=== PATIENT | female | born 1930 | race Caucasian/White ===

== ENCOUNTER 2018-11-13 12:55 | Emergency (ER) | payer BC, MEDICARE ==
[2018-11-13 13:46] VITALS: BP 165/66
[2018-11-13] MEDS ORDERED: Diphtheria,Pertussis(Acell),Tetanus Vaccine 0.5 ML SDV IM ONE (13:57)
--- NOTE | 2018-11-13 14:00 | EDM.PDOC ---
ED HPI GENERAL MEDICAL PROBLEM - General Chief Complaint: Laceration Stated Complaint: SCRAP ON LEFT LEG Time Seen by Provider: 11/13/18 13:40 Source of Information: Reports: Patient, Family History Limitations: Reports: No Limitations - History of Present Illness INITIAL COMMENTS - FREE TEXT/NARRATIVE: 87 yo female presents to ER with skin tear to her left leg. When she was getting out of car she bumped leg on the car causing the tear. 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: Reports: 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 ROLL TUBE SETTER History: complete hysterectomy for calcified endometriosis Neurological History: Reports: Other (See Below) Other Neuro History: headache currently interupting sleep - does not really have headaches otherwise - left frontal/top of head - no vision changes - Infectious Disease History Infectious Disease History: Reports: Chicken Pox, Shingles - Past Surgical History Female Surgical History: Reports: Hysterectomy, Salpingo-Oophorectomy Social & Family History - Family History Oncologic: Reports: Brain - Tobacco Use Smoking Status *Q: Never Smoker ED ROS GENERAL - Review of Systems Review Of Systems: See Below Constitutional: Denies: Fever, Chills Respiratory: Denies: Shortness of Breath Cardiovascular: Denies: Chest Pain ED EXAM, SKIN/RASH Exam: See Below Text/Narrative:: exam limited to left leg Exam Limited By: No Limitations General Appearance: Alert, WD/WN, No Apparent Distress Skin: Other (8cm x 6 cm skin tear with intact skin left mid lateral lower leg) ED SKIN PROCEDURES - Additional/Other Procedure(s) Other (Free Text) Procedure(s): wound cleansed with normal saline, skin reapproximated and tegaderm dressing applied. bandaged with kerlex Course - Vital Signs Last Recorded V/S: Last Vital Signs Temp 35.9 C 11/13/18 13:43 Pulse 81 11/13/18 13:43 Resp 14 11/13/18 13:43 BP 165/66 H 11/13/18 13:43 Pulse Ox 98 11/13/18 13:43 - Orders/Labs/Meds Orders: Active Orders 24 hr Category Date Time Status Vaccines to be Administered [RC] PER UNIT ROUTINE Care 11/13/18 13:57 Active Meds: Medications Discontinued Medications Generic Name Dose Route Start Last Admin Trade Name Matt PRN Reason Stop Dose Admin Diphtheria/Tetanus/Acell Pertussis 0.5 ml 11/13/18 13:57 Adacel IM 11/13/18 13:58 .ONCE ONE Departure - Departure Time of Disposition: 13:58 Disposition: Home, Self-Care 01 Condition: Good Clinical Impression: Skin tear of lower leg without complication Qualifiers: Encounter type: initial encounter Laterality: left Qualified Code(s): S81.812A - Laceration without foreign body, left lower leg, initial encounter - Discharge Information *PRESCRIPTION DRUG MONITORING PROGRAM REVIEWED*: Not Applicable *COPY OF PRESCRIPTION DRUG MONITORING REPORT IN PATIENT KAI: Not Applicable Instructions: Skin Tear Care Referrals: PCP,None [Primary Care Provider] - Forms: ED Department Discharge Additional Instructions: leave dressing in place no soaking of leg until healed observe for signs of infection - fire engine red, purulent drainage, increase in swelling or increase in pain ice today for pain relief - My Orders Last 24 Hours: My Active Orders 11/13/18 13:57 Vaccines to be Administered [RC] PER UNIT ROUTINE - Assessment/Plan Last 24 Hours: My Active Orders 11/13/18 13:57 Vaccines to be Administered [RC] PER UNIT ROUTINE
== END 2018-11-13 14:22 | disposition home or self-care (01) ==
LOC: JP.ED 12:55
DX: S81.812A Laceration without foreign body, left lower leg, initial encounter (principal); I25.2 Old myocardial infarction; Z79.899 Other long term (current) drug therapy; Z23 Encounter for immunization; W22.8XXA Striking against or struck by other objects, initial encounter
CPT/HCPCS: 90471; 90715; 99282

== ENCOUNTER 2019-12-17 22:32 | Inpatient (IN) | payer MEDICARE ==
--- NOTE | 2019-12-17 23:27 | EDM.PDOC ---
ED HPI GENERAL MEDICAL PROBLEM - General Chief Complaint: Lower Extremity Injury/Pain Stated Complaint: FALL VIA NORTH Time Seen by Provider: 12/17/19 23:13 Source of Information: Reports: Patient, RN Notes Reviewed History Limitations: Reports: No Limitations - History of Present Illness INITIAL COMMENTS - FREE TEXT/NARRATIVE: 89-year-old female presents emergency department today following a fall at home she states she fell on her right hip she did experience 10 out of 10 pain however EMS did provide some pain medication for her which has helped she cannot bear weight she denies hitting her head there is no loss of consciousness Right Hip Pain Score (Numeric/FACES): 1 - Related Data Allergies Allergy/AdvReac Type Severity Reaction Status Date / Time No Known Allergies Allergy Verified 12/17/19 22:39 Home Meds: Home Meds Ibuprofen 200 mg PO BID 11/21/15 [History] Niacin 1,000 mg PO BID 11/21/15 [History] Simvastatin 1 tab PO DAILY 12/16/15 [History] diphenhydrAMINE HCL [Wal-Sleep Z] 2 tab PO BEDTIME 12/17/19 [History] Past Medical History HEENT History: Reports: Cataract Cardiovascular History: Reports: CAD, NE Other Cardiovascular History: NE in approx 2001 Genitourinary History: Reports: Other (See Below) Other Genitourinary History: hx of uti infections 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: 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 ENGINEER History: complete hysterectomy for calcified endometriosis Neurological History: Reports: Other (See Below) Other Neuro History: headache currently interupting sleep - does not really have headaches otherwise - left frontal/top of head - no vision changes - Infectious Disease History Infectious Disease History: Reports: Chicken Pox, Shingles - Past Surgical History Female Surgical History: Reports: Hysterectomy, Salpingo-Oophorectomy Social & Family History - Family History Oncologic: Reports: Brain - Tobacco Use Smoking Status *Q: Never Smoker - Caffeine Use Caffeine Use: Reports: Coffee - Recreational Drug Use Recreational Drug Use: No Review of Systems - Review of Systems Review Of Systems: See Below Constitutional: Reports: No Symptoms Musculoskeletal: Reports: Joint Pain Skin: Reports: No Symptoms Neurological: Reports: No Symptoms (Right hip pain) ED EXAM, GENERAL - Physical Exam Exam: See Below Free Text/Narrative:: Examination the right hip I do not appreciate any abrasion there is no erythema there is no edema noted over the right hip I can do flexion extension as well as internal and external rotation however this does elicit pain Exam Limited By: No Limitations General Appearance: Alert, WD/WN, No Apparent Distress Respiratory/Chest: No Respiratory Distress, Lungs Clear, Normal Breath Sounds, No Accessory Muscle Use, Chest Non-Tender Cardiovascular: Regular Rate, Rhythm, No Murmur Course - Vital Signs Last Recorded V/S: Last Vital Signs Temp 98.1 F 12/17/19 22:45 Pulse 75 12/17/19 22:45 Resp 16 12/17/19 22:45 BP 116/63 12/17/19 22:45 Pulse Ox 98 12/17/19 22:45 - Orders/Labs/Meds Orders: Active Orders 24 hr Category Date Time Status Hip Min 2V or 3V w Pelvis Rt [CR] Stat Exams 12/17/19 23:24 Taken Departure - Departure Time of Disposition: 00:08 Disposition: Home, Self-Care 01 Condition: Fair Clinical Impression: Fracture of neck of femur, hip - Discharge Information Referrals: PCP,None [Primary Care Provider] - Forms: ED Department Discharge Sepsis Event Note (ED) - Evaluation Sepsis Screening Result: No Definite Risk - Focused Exam Vital Signs: Vital Signs Temp Pulse Resp BP Pulse Ox 12/17/19 22:45 98.1 F 75 16 116/63 98 - My Orders Last 24 Hours: My Active Orders 12/17/19 23:24 Hip Min 2V or 3V w Pelvis Rt [CR] Stat - Assessment/Plan Last 24 Hours: My Active Orders 12/17/19 23:24 Hip Min 2V or 3V w Pelvis Rt [CR] Stat Plan: Assessment Acuity = acute Site and laterality = right neck fracture femoral Etiology = secondary to fall Manifestations = none Location of injury = Home Lab values = x-ray describes a fracture above Plan Call discussed case with Dr. Boateng orthopedic surgery at [phone] agreed to do consultation in the morning for possible surgical intervention, call discussed case on-call physician at [phone] agreed to evaluate the patient in the hospital for admission This note was dictated using [employer] voice recognition software please call with any questions on syntax or grammar.
[2019-12-18] MEDS ORDERED: Ondansetron 4 MG/2 ML SDV IV PRN (00:09)
[2019-12-18] MEDS ORDERED: fentaNYL 100 MCG/2 ML SDV IVPUSH PRN (00:12)
[2019-12-18] MEDS: Sodium Chloride 0.9% 1,000 ML IV SCH ×2 (00:44→08:12)
[2019-12-18] MEDS: fentaNYL 100 MCG/2 ML SDV IVPUSH PRN ×4 (04:00→19:16)
[2019-12-18] MEDS: Niacin 500 MG Cap.ER PO SCH ×2 (08:01→21:24)
[2019-12-18] MEDS ORDERED: Midazolam 1 MG/ML 2 ML SDV ONE (09:21)
[2019-12-18] MEDS ORDERED: fentaNYL 100 MCG/2 ML SDV ONE ×3 (09:21→13:02)
[2019-12-18] MEDS ORDERED: Propofol 200 MG/20 ML SDV ONE (09:21)
[2019-12-18] MEDS: Simvastatin 20 MG Tab PO SCH (09:53)
--- NOTE | 2019-12-18 10:28 | HP ---
CHIEF COMPLAINT: Right hip pain. HISTORY OF PRESENT ILLNESS: An 89-year-old who tripped on step stool, landed on her right hip, had 10/10 pain. Ambulance was called. They did give her some pain medicine in transport and presented to the emergency room with right hip pain, was found to have right hip fracture. Dr. Elizondor, the emergency room physician did contact Orthopedic Surgery who will take a look at her in the morning for possible repair, and I was asked to admit the patient for further evaluation and treatment. She denies any other complaints at this time. PAST MEDICAL HISTORY: 1. Coronary artery disease with a slight heart attack in 2001, had 1 stent placed and has been asymptomatic since then. 2. Hyperlipidemia, which she takes medication for. 3. Hysterectomy with bilateral salpingo-oophorectomy for endometriosis. 4. Rotator cuff tears with repair to her right shoulder. 5. Osteoarthritis, right knee. CURRENT MEDICATION: Simvastatin 20 mg daily. SOCIAL HISTORY: Nonsmoker. Does drink 1 drink of alcohol per day, I believe vodka. FAMILY HISTORY: Mother of brain cancer at age 59. Father had some type of intestinal cancer in his 80s. REVIEW OF SYSTEMS: She does report headache, but that is better. Otherwise, no other HEENT complaints. Denies any chest pain or trouble breathing. No nausea, vomiting, diarrhea, or constipation. No urinary problems reported. No swelling in her legs. No skin problems. No neurologic complaints. Orthopedic complaints as above with the right hip pain and unable to bear weight on her right leg. She also complains of right knee pain which is chronic. OBJECTIVE: VITAL SIGNS: Weight set scale 62.2, temperature 36.7 pulse 75, blood pressure 116/63, respirations 16, O2 saturation 98% on room air. GENERAL: The patient is alert and oriented x3. No apparent distress. HEENT: Pharynx is clear. NECK: Supple. No adenopathy, thyromegaly, JVD, carotid bruits. LUNGS: Clear. HEART: Regular without murmurs. ABDOMEN: Soft, nontender. No mass or organomegaly palpated. EXTREMITIES: The patient does have pain with palpation and movement to her right hip. She has no swelling in her lower extremities. SKIN: Unremarkable. NEUROLOGIC: Cranial nerves 2 through 12 grossly intact. Alert and oriented x3. Mental status is normal. LABORATORY DATA: COVID-19 testing was negative. X-ray did show right hip fracture. ASSESSMENT: 1. Right hip fracture. We will admit her to the hospital with Orthopedic Surgery going to look at her later today for definitive treatment plan. If she does have to have surgery, she is cleared for surgery. 2. Coronary artery disease with slight myocardial infarction in 2001 with 1 stent placed, been asymptomatic since then. 3. Hyperlipidemia. 4. Hysterectomy with bilateral salpingo-oophorectomy. 5. Daily alcohol use with 1 vodka per day. Dusty Sequeira MD /[id number]
[2019-12-18] MEDS ORDERED: Bupivacaine 0.5%/EPINEPHrine 1:200,000 50 ML MDV ONE (10:32)
[2019-12-18] MEDS ORDERED: oxyCODONE 5 MG Tab PO PRN (10:49)
[2019-12-18] MEDS ORDERED: Acetaminophen 325 MG Tab PO PRN (10:49)
[2019-12-18] MEDS ORDERED: Ondansetron 4 MG Tab.DIS PO PRN (10:50)
--- NOTE | 2019-12-18 10:52 | PCM.PN ---
- General Info Date of Service: 12/18/19 Subjective Update: No acute events overnight. Pain has been well controlled. No significant nausea. No abdominal pain. Surgery is planned later this afternoon. Functional Status: Reports: Pain Controlled - Patient Data Vitals - Most Recent: Last Vital Signs Temp 36.5 C 12/18/19 08:06 Pulse 66 12/18/19 08:06 Resp 18 12/18/19 08:06 BP 134/64 12/18/19 08:06 Pulse Ox 95 12/18/19 08:06 Weight - Most Recent: 62.284 kg I&O - Last 24 Hours: Intake & Output 12/17/19 12/18/19 12/18/19 22:59 06:59 14:59 Intake Total 416 Output Total 550 Balance -134 Lab Results Last 24 Hours: Laboratory Results - last 24 hr 12/18/19 Range/Units 04:17 SARS Virus RNA (PCR) Negative (NEGATIVE) Med Orders - Current: Current Medications Diphenhydramine HCl (Benadryl) 50 mg PO BEDTIME [facility] Fentanyl (Sublimaze) 50 mcg IVPUSH Q2H PRN PRN Reason: Pain (severe 7-10) Last Admin: 12/18/19 07:54 Dose: 50 mcg Documented by: Niacin (Niacin) 1,000 mg PO BID [facility] Last Admin: 12/18/19 08:01 Dose: Not Given Documented by: Ondansetron HCl (Zofran) 4 mg IV Q4H PRN PRN Reason: Nausea/Vomiting Simvastatin (Zocor) 20 mg PO DAILY [facility] Last Admin: 12/18/19 09:53 Dose: Not Given Documented by: Discontinued Medications Bupivacaine HCl/Epinephrine Bitart (Marcaine 0.5%/Epinephrine 1:200,000) Confirm Administered Dose 50 ml .ROUTE .STK-MED ONE Stop: 12/18/19 10:33 Fentanyl (Sublimaze) 50 mcg IVPUSH Q6H PRN PRN Reason: Pain (severe 7-10) Last Admin: 12/18/19 01:04 Dose: 50 mcg Documented by: Fentanyl (Sublimaze) Confirm Administered Dose 100 mcg .ROUTE .STK-MED ONE Stop: 12/18/19 09:22 Sodium Chloride (Normal Saline) 1,000 mls @ 125 mls/hr IV ASDIRECTED [facility] Last Admin: 12/18/19 08:12 Dose: 125 mls/hr Documented by: Midazolam HCl (Versed 1 Mg/Ml) Confirm Administered Dose 2 mg .ROUTE .STK-MED ONE Stop: 12/18/19 09:22 Propofol (Diprivan 20 Ml) Confirm Administered Dose 200 mg .ROUTE .STK-MED ONE Stop: 12/18/19 09:22 - Exam Quality Assessment: No: Supplemental Oxygen General: Alert, Oriented, Cooperative, No Acute Distress Lungs: Normal Respiratory Effort GI/Abdominal Exam: Soft, No Distention Extremities: No Pedal Edema Psy/Mental Status: Alert, Normal Affect Sepsis Event Note - Evaluation Sepsis Screening Result: No Definite Risk - Focused Exam Vital Signs: Vital Signs Temp Pulse Resp BP Pulse Ox 12/18/19 08:06 36.5 C 66 18 134/64 95 12/18/19 04:04 36.8 C 84 16 145/62 H 95 12/18/19 00:09 35.8 C L 76 16 132/64 96 Date Exam was Performed: 12/18/19 Time Exam was Performed: 12:23 - Problem List Review Problem List Initiated/Reviewed/Updated: Yes - My Orders Last 24 Hours: My Active Orders 12/18/19 10:48 BASIC METABOLIC PANEL,BMP [CHEM] Urgent 12/18/19 10:49 CBC WITH AUTO DIFF [HEME] Urgent Acetaminophen [Tylenol] 650 mg PO Q4H PRN oxyCODONE 5 mg PO Q4H PRN 12/18/19 10:50 Ondansetron [Zofran ODT] 4 mg PO Q4H PRN 12/18/19 11:00 Sodium Chloride 0.9% [Normal Saline] 1,000 ml IV ASDIRECTED 12/18/19 21:00 Melatonin 9 mg PO BEDTIME 12/19/19 00:30 Angulo Catheter Insertion [Insert Urinary Catheter] [OM.PC] Q24H 12/19/19 05:00 BASIC METABOLIC PANEL,BMP [CHEM] Timed CBC W/O DIFF,HEMOGRAM [HEME] Timed (1) - Plan Plan:: ASSESSMENT AND PLAN - Traumatic fracture of the right hip-patient medically optimized. Surgery planned later in the day. No significant past medical history. -Pain control -Surgical intervention later in the day with Dr Luigi Boateng -Physical therapy when stable after surgery Maintenance issues - - DVT prophylaxis -mechanical today, initiate enoxaparin when able after surgery - GI prophylaxis -not indicated - Nutrition -n.p.o. until after surgery - Angulo catheter -placed in the emergency room with major lower extremity fracture and need for accurate intake and output Disposition -home with home care versus subacute rehab Mark Goldne M.D.
[2019-12-18] MEDS ORDERED: Sodium Chloride 0.9% 1,000 ML IV SCH (11:00)
--- NOTE | 2019-12-18 11:39 | CR ---
Hip Min 2V or 3V w Pelvis Rt CLINICAL HISTORY: Fall, pain FINDINGS: There is a cortical step-off laterally at the subcapital region of the femur. There is some transverse lucency in this region on the frog-leg lateral. There are severe degenerative changes in the lumbar spine. IMPRESSION: Apparent subcapital fracture right femur
[2019-12-18] MEDS ORDERED: Sodium Chloride 0.9% 10 ML ONE ×2 (11:51→12:32)
[2019-12-18] MEDS ORDERED: ceFAZolin 1 GM Vial ONE (11:51)
[2019-12-18] MEDS ORDERED: ePHEDrine 50 MG/ML SDV ONE (12:32)
[2019-12-18] MEDS: oxyCODONE 5 MG Tab PO PRN (18:32)
[2019-12-18] MEDS ORDERED: Ketorolac 30 MG/ML SDV IVPUSH SCH (20:45)
[2019-12-18] MEDS ORDERED: Ketorolac 30 MG/ML SDV IVPUSH ONE (20:54)
[2019-12-18] MEDS: Melatonin 3 MG Tab PO SCH (21:24)
[2019-12-18] MEDS: diphenhydrAMINE 25 MG Cap PO SCH (21:24)
[2019-12-19] MEDS: oxyCODONE 5 MG Tab PO PRN ×2 (03:12→10:32)
[2019-12-19] MEDS: Ketorolac 30 MG/ML SDV IVPUSH SCH ×3 (05:16→20:17)
[2019-12-19] MEDS: Niacin 500 MG Cap.ER PO SCH ×2 (08:43→20:17)
[2019-12-19] MEDS: Simvastatin 20 MG Tab PO SCH (08:44)
--- NOTE | 2019-12-19 10:50 | PCM.PN ---
- General Info Date of Service: 12/19/19 Subjective Update: No acute events overnight. Uneventful surgery yesterday afternoon with a hip pinning completed. Pain is well controlled. No fevers. Vital signs have been stable. Tolerating diet. Has not worked with physical therapy yet but they will be in shortly. Functional Status: Reports: Pain Controlled - Patient Data Vitals - Most Recent: Last Vital Signs Temp 36.8 C 12/19/19 07:18 Pulse 75 12/19/19 07:18 Resp 19 12/19/19 07:18 BP 118/77 12/19/19 07:18 Pulse Ox 98 12/19/19 07:18 Weight - Most Recent: 62.284 kg I&O - Last 24 Hours: Intake & Output 12/18/19 12/19/19 12/19/19 22:59 06:59 14:59 Intake Total 1751 1199 120 Output Total 475 600 50 Balance 1276 599 70 Lab Results Last 24 Hours: Laboratory Results - last 24 hr 12/18/19 12/18/19 12/19/19 Range/Units 10:52 10:52 04:15 WBC 5.3 5.8 (4.5-11.0) K/uL RBC 3.60 3.50 (3.30-5.50) M/uL Hgb 11.8 L 11.2 L (12.0-15.0) g/dL Hct 36.1 35.1 L (36.0-48.0) % MCV 100 H 100 H (80-98) fL MCH 33 H 32 H (27-31) pg MCHC 33 32 (32-36) % Plt Count 159 141 L (150-400) K/uL Neut % (Auto) 70 H (36-66) % Lymph % (Auto) 19 L (24-44) % Coffey % (Auto) 8 H (2-6) % Eos % (Auto) 2 (2-4) % Baso % (Auto) 0 (0-1) % Sodium 143 (140-148) mmol/L Potassium 3.9 (3.6-5.2) mmol/L Chloride 107 (100-108) mmol/L Carbon Dioxide 27 (21-32) mmol/L Anion Gap 9.2 (5.0-14.0) mmol/L BUN 17 (7-18) mg/dL Creatinine 0.8 (0.6-1.0) mg/dL Est Cr Clr Drug Dosing 42.83 mL/min Estimated GFR (MDRD) > 60 (>60) Glucose 102 (74-106) mg/dL Calcium 8.7 (8.5-10.1) mg/dL 12/19/19 Range/Units 04:15 WBC (4.5-11.0) K/uL RBC (3.30-5.50) M/uL Hgb (12.0-15.0) g/dL Hct (36.0-48.0) % MCV (80-98) fL MCH (27-31) pg MCHC (32-36) % Plt Count (150-400) K/uL Neut % (Auto) (36-66) % Lymph % (Auto) (24-44) % Coffey % (Auto) (2-6) % Eos % (Auto) (2-4) % Baso % (Auto) (0-1) % Sodium 139 L (140-148) mmol/L Potassium 3.9 (3.6-5.2) mmol/L Chloride 104 (100-108) mmol/L Carbon Dioxide 26 (21-32) mmol/L Anion Gap 12.9 (5.0-14.0) mmol/L BUN 13 (7-18) mg/dL Creatinine 1.0 (0.6-1.0) mg/dL Est Cr Clr Drug Dosing 34.26 mL/min Estimated GFR (MDRD) 52 L (>60) Glucose 114 H (74-106) mg/dL Calcium 8.4 L (8.5-10.1) mg/dL Med Orders - Current: Current Medications Acetaminophen (Tylenol) 650 mg PO Q4H PRN PRN Reason: Pain/Fever Last Admin: 12/19/19 03:13 Dose: 650 mg Documented by: Diphenhydramine HCl (Benadryl) 50 mg PO BEDTIME [facility] Last Admin: 12/18/19 21:24 Dose: Not Given Documented by: Fentanyl (Sublimaze) 50 mcg IVPUSH Q2H PRN PRN Reason: Pain (severe 7-10) Last Admin: 12/18/19 19:16 Dose: 50 mcg Documented by: Sodium Chloride (Normal Saline) 1,000 mls @ 75 mls/hr IV ASDIRECTED [facility] Last Admin: 12/19/19 05:15 Dose: 75 mls/hr Documented by: Ketorolac Tromethamine (Toradol) 15 mg IVPUSH Q8H [facility] Stop: 12/20/19 13:01 Last Admin: 12/19/19 05:16 Dose: 15 mg Documented by: Melatonin (Melatonin) 9 mg PO BEDTIME [facility] Last Admin: 12/18/19 21:24 Dose: Not Given Documented by: Niacin (Niacin) 1,000 mg PO BID [facility] Last Admin: 12/19/19 08:43 Dose: 1,000 mg Documented by: Ondansetron HCl (Zofran) 4 mg IV Q4H PRN PRN Reason: Nausea/Vomiting Ondansetron HCl (Zofran Odt) 4 mg PO Q4H PRN PRN Reason: Nausea/Vomiting Oxycodone HCl (Oxycodone) 5 - 10 mg PO Q4H PRN PRN Reason: Pain (moderate 4-6) Last Admin: 12/19/19 10:32 Dose: 10 mg Documented by: Simvastatin (Zocor) 20 mg PO DAILY [facility] Last Admin: 12/19/19 08:44 Dose: 20 mg Documented by: Discontinued Medications Bupivacaine HCl/Epinephrine Bitart (Marcaine 0.5%/Epinephrine 1:200,000) Confirm Administered Dose 50 ml .ROUTE .STK-MED ONE Stop: 12/18/19 10:33 Cefazolin Sodium (Ancef) Confirm Administered Dose 1 gm .ROUTE .STK-MED ONE Stop: 12/18/19 11:52 Ephedrine Sulfate (Ephedrine Sulfate) Confirm Administered Dose 50 mg .ROUTE .STK-MED ONE Stop: 12/18/19 12:33 Fentanyl (Sublimaze) 50 mcg IVPUSH Q6H PRN PRN Reason: Pain (severe 7-10) Last Admin: 12/18/19 01:04 Dose: 50 mcg Documented by: Fentanyl (Sublimaze) Confirm Administered Dose 100 mcg .ROUTE .STK-MED ONE Stop: 12/18/19 09:22 Fentanyl (Sublimaze) Confirm Administered Dose 100 mcg .ROUTE .STK-MED ONE Stop: 12/18/19 13:01 Fentanyl (Sublimaze) Confirm Administered Dose 100 mcg .ROUTE .STK-MED ONE Stop: 12/18/19 13:03 Sodium Chloride (Normal Saline) 1,000 mls @ 125 mls/hr IV ASDIRECTED [facility] Last Admin: 12/18/19 08:12 Dose: 125 mls/hr Documented by: Sodium Chloride (Normal Saline) Confirm Administered Dose 10 mls @ as directed .ROUTE .STK-MED ONE Stop: 12/18/19 11:52 Sodium Chloride (Normal Saline) Confirm Administered Dose 10 mls @ as directed .ROUTE .STK-MED ONE Stop: 12/18/19 12:33 Ketorolac Tromethamine (Toradol) 30 mg IVPUSH Q8H [facility] Stop: 12/20/19 12:46 Last Admin: 12/18/19 22:12 Dose: Not Given Documented by: Ketorolac Tromethamine (Toradol) 30 mg IVPUSH ONETIME ONE Stop: 12/18/19 20:55 Last Admin: 12/18/19 21:19 Dose: 30 mg Documented by: Midazolam HCl (Versed 1 Mg/Ml) Confirm Administered Dose 2 mg .ROUTE .STK-MED ONE Stop: 12/18/19 09:22 Oxycodone HCl (Oxycodone) 5 mg PO Q4H PRN PRN Reason: Pain (moderate 4-6) Propofol (Diprivan 20 Ml) Confirm Administered Dose 200 mg .ROUTE .STK-MED ONE Stop: 12/18/19 09:22 - Exam Quality Assessment: No: Supplemental Oxygen General: Alert, Oriented, Cooperative, No Acute Distress Lungs: Normal Respiratory Effort Cardiovascular: Regular Rate, Regular Rhythm GI/Abdominal Exam: Soft, No Distention Extremities: No Pedal Edema. No: Increased Warmth Skin: Warm, Dry, Ecchymosis (Around incision site on the right lateral thigh) Wound/Incisions: Dressing Dry and Intact Psy/Mental Status: Alert, Normal Affect Sepsis Event Note - Evaluation Sepsis Screening Result: No Definite Risk - Focused Exam Vital Signs: Vital Signs Temp Temp Pulse Resp BP Pulse Ox 12/19/19 07:18 36.8 C 75 19 118/77 98 12/19/19 03:43 37.2 C 12/19/19 03:13 37.3 C 12/19/19 03:07 37.3 C 76 16 137/62 98 Date Exam was Performed: 12/19/19 Time Exam was Performed: 10:47 - Problem List Review Problem List Initiated/Reviewed/Updated: Yes - My Orders Last 24 Hours: My Active Orders 12/18/19 10:49 Acetaminophen [Tylenol] 650 mg PO Q4H PRN 12/18/19 10:50 Ondansetron [Zofran ODT] 4 mg PO Q4H PRN 12/18/19 11:00 Sodium Chloride 0.9% [Normal Saline] 1,000 ml IV ASDIRECTED 12/18/19 21:00 Melatonin 9 mg PO BEDTIME 12/19/19 10:15 Convert IV to Saline Lock [OM.PC] Routine 12/19/19 10:47 Up With Assistance [RC] ASDIRECTED 12/20/19 00:30 Angulo Catheter Insertion [Insert Urinary Catheter] [OM.PC] Q24H 12/20/19 05:00 CBC W/O DIFF,HEMOGRAM [HEME] Timed (1) - Plan Plan:: ASSESSMENT AND PLAN - Traumatic fracture of the right hip-hip pinning completed yesterday without event. Patient has been stable postoperatively. Hemoglobin is stable. -Pain control -Surgical follow-up per Dr Luigi Boateng -Physical therapy Maintenance issues - - DVT prophylaxis -enoxaparin - GI prophylaxis -not indicated - Nutrition -regular - Angulo catheter -placed in the emergency room with major lower extremity fracture and need for accurate intake and output, anticipate removal later or tomorrow Disposition -home with home care versus subacute rehab Mark Golden M.D.
[2019-12-19] MEDS ORDERED: traMADol 50 MG Tab PO PRN (18:12)
[2019-12-19] MEDS: Melatonin 3 MG Tab PO SCH (20:17)
[2019-12-19] MEDS: diphenhydrAMINE 25 MG Cap PO SCH (20:17)
[2019-12-20] MEDS: Acetaminophen/HYDROcodone 325-7.5 MG Tab PO PRN (03:54)
[2019-12-20] MEDS: Ketorolac 30 MG/ML SDV IVPUSH SCH ×2 (04:06→13:09)
[2019-12-20] MEDS ORDERED: Nitroglycerin 0.4 MG Tab.SL SL ONE (05:05)
[2019-12-20] MEDS ORDERED: Nitroglycerin 0.4 MG Tab.SL ONE (05:13)
[2019-12-20] MEDS: Niacin 500 MG Cap.ER PO SCH ×2 (08:52→20:16)
[2019-12-20] MEDS: Simvastatin 20 MG Tab PO SCH (08:52)
--- NOTE | 2019-12-20 09:30 | PCM.PN ---
- General Info Date of Service: 12/20/19 Subjective Update: The patient did have an episode of chest pain overnight. This occurred around 5 AM. 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 She did receive 1 dose of nitroglycerin with complete resolution. EKG was obtained at the time and was unremarkable. Her vital signs were all stable. Troponin level was negative. She feels normal now. No significant difficulty transferring from the bed to the chair. Pain has been very well controlled. Hemoglobin level stable. Has not had a bowel movement in several days. Functional Status: Reports: Pain Controlled, Tolerating Diet - Review of Systems General: Denies: Fever - Patient Data Vitals - Most Recent: Last Vital Signs Temp 35.7 C L 12/20/19 02:00 Pulse 77 12/20/19 02:00 Resp 16 12/20/19 02:00 BP 131/61 12/20/19 05:22 Pulse Ox 95 12/20/19 02:00 Weight - Most Recent: 62.284 kg I&O - Last 24 Hours: Intake & Output 12/19/19 12/20/19 12/20/19 22:59 06:59 14:59 Output Total 135 400 50 Balance -135 -400 -50 Lab Results Last 24 Hours: Laboratory Results - last 24 hr 12/20/19 12/20/19 Range/Units 05:38 05:38 WBC 6.9 (4.5-11.0) K/uL RBC 3.27 L (3.30-5.50) M/uL Hgb 10.6 L (12.0-15.0) g/dL Hct 33.1 L (36.0-48.0) % MCV 101 H (80-98) fL MCH 32 H (27-31) pg MCHC 32 (32-36) % Plt Count 147 L (150-400) K/uL Troponin I < 0.017 (0.000-0.056) ng/mL Med Orders - Current: Current Medications Acetaminophen (Tylenol) 650 mg PO Q4H PRN PRN Reason: Pain/Fever Last Admin: 12/19/19 03:13 Dose: 650 mg Documented by: Hydrocodone Bitart/Acetaminophen ([place] 325-7.5 Mg) 1 - 2 tab PO Q4H PRN PRN Reason: Pain (moderate 4-6) Last Admin: 12/20/19 03:54 Dose: 2 tab Documented by: Diphenhydramine HCl (Benadryl) 50 mg PO BEDTIME [facility] Last Admin: 12/19/19 20:17 Dose: 50 mg Documented by: Fentanyl (Sublimaze) 50 mcg IVPUSH Q2H PRN PRN Reason: Pain (severe 7-10) Last Admin: 12/18/19 19:16 Dose: 50 mcg Documented by: Ketorolac Tromethamine (Toradol) 15 mg IVPUSH Q8H [facility] Stop: 12/20/19 13:01 Last Admin: 12/20/19 04:06 Dose: 15 mg Documented by: Melatonin (Melatonin) 9 mg PO BEDTIME [facility] Last Admin: 12/19/19 20:17 Dose: 9 mg Documented by: Niacin (Niacin) 1,000 mg PO BID [facility] Last Admin: 12/20/19 08:52 Dose: 1,000 mg Documented by: Ondansetron HCl (Zofran) 4 mg IV Q4H PRN PRN Reason: Nausea/Vomiting Ondansetron HCl (Zofran Odt) 4 mg PO Q4H PRN PRN Reason: Nausea/Vomiting Last Admin: 12/19/19 11:30 Dose: 4 mg Documented by: Simvastatin (Zocor) 20 mg PO DAILY [facility] Last Admin: 12/20/19 08:52 Dose: 20 mg Documented by: Tramadol HCl (Ultram) 50 mg PO Q6H PRN PRN Reason: Pain (mild 1-3) Discontinued Medications Bupivacaine HCl/Epinephrine Bitart (Marcaine 0.5%/Epinephrine 1:200,000) Confirm Administered Dose 50 ml .ROUTE .STK-MED ONE Stop: 12/18/19 10:33 Cefazolin Sodium (Ancef) Confirm Administered Dose 1 gm .ROUTE .STK-MED ONE Stop: 12/18/19 11:52 Ephedrine Sulfate (Ephedrine Sulfate) Confirm Administered Dose 50 mg .ROUTE .STK-MED ONE Stop: 12/18/19 12:33 Fentanyl (Sublimaze) 50 mcg IVPUSH Q6H PRN PRN Reason: Pain (severe 7-10) Last Admin: 12/18/19 01:04 Dose: 50 mcg Documented by: Fentanyl (Sublimaze) Confirm Administered Dose 100 mcg .ROUTE .STK-MED ONE Stop: 12/18/19 09:22 Fentanyl (Sublimaze) Confirm Administered Dose 100 mcg .ROUTE .STK-MED ONE Stop: 12/18/19 13:01 Fentanyl (Sublimaze) Confirm Administered Dose 100 mcg .ROUTE .STK-MED ONE Stop: 12/18/19 13:03 Sodium Chloride (Normal Saline) 1,000 mls @ 125 mls/hr IV ASDIRECTED [facility] Last Admin: 12/18/19 08:12 Dose: 125 mls/hr Documented by: Sodium Chloride (Normal Saline) 1,000 mls @ 75 mls/hr IV ASDIRECTED [facility] Last Admin: 12/19/19 05:15 Dose: 75 mls/hr Documented by: Sodium Chloride (Normal Saline) Confirm Administered Dose 10 mls @ as directed .ROUTE .STK-MED ONE Stop: 12/18/19 11:52 Sodium Chloride (Normal Saline) Confirm Administered Dose 10 mls @ as directed .ROUTE .ST-MED ONE Stop: 12/18/19 12:33 Ketorolac Tromethamine (Toradol) 30 mg IVPUSH Q8H [facility] Stop: 12/20/19 12:46 Last Admin: 12/18/19 22:12 Dose: Not Given Documented by: Ketorolac Tromethamine (Toradol) 30 mg IVPUSH ONETIME ONE Stop: 12/18/19 20:55 Last Admin: 12/18/19 21:19 Dose: 30 mg Documented by: Midazolam HCl (Versed 1 Mg/Ml) Confirm Administered Dose 2 mg .ROUTE .STK-MED ONE Stop: 12/18/19 09:22 Nitroglycerin (Nitrostat) 0.4 mg SL ONETIME ONE Stop: 12/20/19 05:06 Last Admin: 12/20/19 05:14 Dose: 0.4 mg Documented by: Nitroglycerin (Nitrostat) Confirm Administered Dose 0.4 mg .ROUTE .STK-MED ONE Stop: 12/20/19 05:14 Last Admin: 12/20/19 05:33 Dose: Not Given Documented by: Oxycodone HCl (Oxycodone) 5 mg PO Q4H PRN PRN Reason: Pain (moderate 4-6) Oxycodone HCl (Oxycodone) 5 - 10 mg PO Q4H PRN PRN Reason: Pain (moderate 4-6) Last Admin: 12/19/19 10:32 Dose: 10 mg Documented by: Propofol (Diprivan 20 Ml) Confirm Administered Dose 200 mg .ROUTE .STK-MED ONE Stop: 12/18/19 09:22 - Exam Quality Assessment: No: Supplemental Oxygen General: Alert, Oriented, Cooperative, No Acute Distress Lungs: Normal Respiratory Effort GI/Abdominal Exam: Soft, No Distention Extremities: No Pedal Edema Psy/Mental Status: Alert, Normal Affect Sepsis Event Note - Evaluation Sepsis Screening Result: No Definite Risk - Focused Exam Vital Signs: Vital Signs Temp Temp Pulse Resp BP BP Pulse Ox 12/20/19 05:22 131/61 12/20/19 05:14 136/66 12/20/19 02:00 35.7 C L 77 16 116/61 95 12/19/19 22:35 36.3 C 114 H 16 128/54 L 97 Date Exam was Performed: 12/20/19 Time Exam was Performed: 10:22 - Problem List Review Problem List Initiated/Reviewed/Updated: Yes - My Orders Last 24 Hours: My Active Orders 12/19/19 10:15 Convert IV to Saline Lock [OM.PC] Routine 12/19/19 10:47 Up With Assistance [RC] ASDIRECTED 12/20/19 05:04 EKG 12 Lead [EK] Routine 12/20/19 05:05 EKG Documentation Completion [RC] ASDIRECTED 12/20/19 09:28 Discontinue Telemetry Monitoring [Cardiac Monitoring Discontinue] [RC] Click to Edit Magnesium Hydroxide [Milk of Magnesia] 30 ml PO BID PRN 12/20/19 09:29 Docusate Sodium/Sennosides [Senna Plus] 1 tab PO BID PRN - Plan Plan:: ASSESSMENT AND PLAN - Traumatic fracture of the right hip-hip pinning completed 12/17 without event. Pain well controlled. Doing well with physical therapy. -Pain control -Surgical follow-up per Dr Luigi Boateng -Physical therapy -Remove Angulo catheter Maintenance issues - - DVT prophylaxis -enoxaparin - GI prophylaxis -not indicated - Nutrition -regular - Angulo catheter -will be removed today. Disposition -I anticipate discharge to the [facility] for subacute rehab Mark Golden M.D.
[2019-12-20] MEDS: Magnesium Hydroxide 400 MG/5 ML Susp 30 ML Cup PO PRN ×2 (13:10→20:44)
[2019-12-20] MEDS: Melatonin 3 MG Tab PO SCH (20:16)
[2019-12-20] MEDS: Aspirin 81 MG Tab.EC PO SCH (20:16)
[2019-12-20] MEDS: diphenhydrAMINE 25 MG Cap PO SCH (20:16)
[2019-12-21] MEDS ORDERED: Bisacodyl 10 MG Supp RECTAL ONE (00:53)
[2019-12-21] MEDS: Niacin 500 MG Cap.ER PO SCH (08:04)
[2019-12-21] MEDS: Simvastatin 20 MG Tab PO SCH (08:04)
[2019-12-21] MEDS: Aspirin 81 MG Tab.EC PO SCH (08:04)
[2019-12-21] MEDS: Acetaminophen/HYDROcodone 325-7.5 MG Tab PO PRN (08:35)
--- NOTE | 2019-12-21 09:34 | PCM.DCSUM1 ---
Discharge Summary - Hospital Course Brief History: Healthy 89-year-old female who presented with right hip pain after tripping and falling at home. She was admitted for surgical management of a right femoral neck fracture. Diagnosis: Stroke: No - Discharge Data Discharge Date: 12/21/19 Discharge Disposition: DC/Tfer to SNF 03 Condition: Good - Referral to Home Health Primary Care Physician: PCP None - Discharge Diagnosis/Problem(s) (1) Fracture of neck of femur, hip SNOMED Code(s): 0697306 ICD Code: S72.009A - FRACTURE OF UNSP PART OF NECK OF UNSP FEMUR, INIT Status: Acute Current Visit: Yes (2) Status post-operative repair of closed fracture of right hip SNOMED Code(s): 584079722 ICD Code: Z98.890 - OTHER SPECIFIED POSTPROCEDURAL STATES; Z87.81 - PERSONAL HISTORY OF (HEALED) TRAUMATIC FRACTURE Status: Acute Current Visit: Yes - Patient Summary/Data Consults: Consultations 12/18/19 14:20 Consult to Physical Therapy [PT Evaluation and Treatment] [CONS] Routine Please Evaluate and Treat. PT Reason for Consult: Ambulation Special Instructions: partial weight bearing on right This query below is only for informational purposes and is not editable. Admission Diagnosis/Problem: Fracture of femur Hospital Course: Vipin presented to the emergency room with right hip pain after tripping and falling at home. X-ray imaging in the emergency room suggested a fracture of the right femoral neck. She was admitted to the hospital for pain control and surgical intervention. The day after admission she underwent surgical fixation with 3 screws placed through the fracture. She tolerated the procedure well. Her postoperative period has been fairly uncomplicated. Her pain has been well controlled. Her vital signs have been stable. She had a very minimal drop in her hemoglobin and it has remained above 10. She has done very well but would benefit from subacute rehab before returning home. Plan is for her to go to [facility] for some subacute rehab prior to her transition back to home. She is stable and safe for discharge at this time. - Patient Instructions Diet: Regular Diet as Tolerated Activity: Partial Weight Bearing (right leg) Showering/Bathing: May Shower Wound/Incision Care: Keep Operative Site/Wound Site Clean and Dry Notify Provider of: Fever, Increased Pain Other/Special Instructions: 1. You were in the hospital for management of a right hip fracture. This was treated with 3 screws placed through the fracture to secure the femur. Your condition has been improving with interventions provided in the hospital. I do recommend subacute rehab to help improve your strength and ambulation following the injury and surgery. 2. I have placed a referral to physical and occupational therapy for strengthening following the injury and surgery. 3. Please take Aspirin 81 mg twice daily for 1 month. This medication will help reduce the risk of blood clots in the postoperative period. - Discharge Plan *PRESCRIPTION DRUG MONITORING PROGRAM REVIEWED*: Not Applicable *COPY OF PRESCRIPTION DRUG MONITORING REPORT IN PATIENT KAI: Not Applicable Prescriptions/Med Rec: Aspirin [Halfprin] 81 mg PO BID #60 tab.ec Ibuprofen 400 mg PO Q6H PRN #100 tablet PRN Reason: Pain Acetaminophen/HYDROcodone [[place] 325-7.5 MG] 1 tab PO Q4H PRN #60 tablet PRN Reason: Pain Acetaminophen [Tylenol] 650 mg PO Q4H PRN #200 tablet PRN Reason: Pain/Fever Home Medications: Home Meds Niacin 1,000 mg PO BID 11/21/15 [History] Simvastatin 1 tab PO DAILY 12/16/15 [History] diphenhydrAMINE HCL [Wal-Sleep Z] 2 tab PO BEDTIME 12/17/19 [History] Acetaminophen [Tylenol] 650 mg PO Q4H PRN #200 tablet 12/21/19 [Rx] Acetaminophen/HYDROcodone [[place] 325-7.5 MG] 1 tab PO Q4H PRN #60 tablet 12/21/19 [Rx] Aspirin [Halfprin] 81 mg PO BID #60 tab.ec 12/21/19 [Rx] Ibuprofen 400 mg PO Q6H PRN #100 tablet 12/21/19 [Rx] Oxygen Therapy Mode: Room Air Patient Handouts: Hip Fracture - Discharge Summary/Plan Comment DC Time >30 min.: Yes (40-new group home discharge) - Patient Data Vitals - Most Recent: Last Vital Signs Temp 36.8 C 12/21/19 07:00 Pulse 94 12/21/19 07:00 Resp 18 12/21/19 07:00 BP 122/60 12/21/19 07:00 Pulse Ox 98 12/21/19 07:00 Weight - Most Recent: 62.284 kg I&O - Last 24 hours: Intake & Output 12/20/19 12/21/19 12/21/19 22:59 06:59 14:59 Intake Total 660 300 360 Output Total 200 200 Balance 660 100 160 Med Orders - Current: Current Medications Acetaminophen (Tylenol) 650 mg PO Q4H PRN PRN Reason: Pain/Fever Last Admin: 12/19/19 03:13 Dose: 650 mg Documented by: Hydrocodone Bitart/Acetaminophen ([place] 325-7.5 Mg) 1 - 2 tab PO Q4H PRN PRN Reason: Pain (moderate 4-6) Last Admin: 12/21/19 08:35 Dose: 1 tab Documented by: Aspirin (Halfprin) 81 mg PO BID [facility] Last Admin: 12/21/19 08:04 Dose: 81 mg Documented by: Diphenhydramine HCl (Benadryl) 50 mg PO BEDTIME [facility] Last Admin: 12/20/19 20:16 Dose: 50 mg Documented by: Fentanyl (Sublimaze) 50 mcg IVPUSH Q2H PRN PRN Reason: Pain (severe 7-10) Last Admin: 12/18/19 19:16 Dose: 50 mcg Documented by: Magnesium Hydroxide (Milk Of Magnesia) 30 ml PO BID PRN PRN Reason: Constipation Last Admin: 12/20/19 20:44 Dose: 30 ml Documented by: Melatonin (Melatonin) 9 mg PO BEDTIME [facility] Last Admin: 12/20/19 20:16 Dose: 9 mg Documented by: Niacin (Niacin) 1,000 mg PO BID [facility] Last Admin: 12/21/19 08:04 Dose: 1,000 mg Documented by: Ondansetron HCl (Zofran) 4 mg IV Q4H PRN PRN Reason: Nausea/Vomiting Ondansetron HCl (Zofran Odt) 4 mg PO Q4H PRN PRN Reason: Nausea/Vomiting Last Admin: 12/19/19 11:30 Dose: 4 mg Documented by: Senna/Docusate Sodium (Senna Plus) 1 tab PO BID PRN PRN Reason: Constipation Last Admin: 12/20/19 20:44 Dose: 1 tab Documented by: Simvastatin (Zocor) 20 mg PO DAILY [facility] Last Admin: 12/21/19 08:04 Dose: 20 mg Documented by: Tramadol HCl (Ultram) 50 mg PO Q6H PRN PRN Reason: Pain (mild 1-3) Discontinued Medications Bisacodyl (Dulcolax) 10 mg RECTAL ONETIME ONE Stop: 12/21/19 00:54 Last Admin: 12/21/19 01:11 Dose: 10 mg Documented by: Bupivacaine HCl/Epinephrine Bitart (Marcaine 0.5%/Epinephrine 1:200,000) Confirm Administered Dose 50 ml .ROUTE .STK-MED ONE Stop: 12/18/19 10:33 Cefazolin Sodium (Ancef) Confirm Administered Dose 1 gm .ROUTE .STK-MED ONE Stop: 12/18/19 11:52 Ephedrine Sulfate (Ephedrine Sulfate) Confirm Administered Dose 50 mg .ROUTE .STK-MED ONE Stop: 12/18/19 12:33 Fentanyl (Sublimaze) 50 mcg IVPUSH Q6H PRN PRN Reason: Pain (severe 7-10) Last Admin: 12/18/19 01:04 Dose: 50 mcg Documented by: Fentanyl (Sublimaze) Confirm Administered Dose 100 mcg .ROUTE .STK-MED ONE Stop: 12/18/19 09:22 Fentanyl (Sublimaze) Confirm Administered Dose 100 mcg .ROUTE .STK-MED ONE Stop: 12/18/19 13:01 Fentanyl (Sublimaze) Confirm Administered Dose 100 mcg .ROUTE .STK-MED ONE Stop: 12/18/19 13:03 Sodium Chloride (Normal Saline) 1,000 mls @ 125 [facility] Last Admin: 12/18/19 08:12 Dose: 125 mls/hr Documented by: Sodium Chloride (Normal Saline) 1,000 mls @ 75 mls/hr IV ASDIRECTED [facility] Last Admin: 12/19/19 05:15 Dose: 75 mls/hr Documented by: Sodium Chloride (Normal Saline) Confirm Administered Dose 10 mls @ as directed .ROUTE .STK-MED ONE Stop: 12/18/19 11:52 Sodium Chloride (Normal Saline) Confirm Administered Dose 10 mls @ as directed .ROUTE .STK-MED ONE Stop: 12/18/19 12:33 Ketorolac Tromethamine (Toradol) 30 mg IVPUSH Q8H [facility] Stop: 12/20/19 12:46 Last Admin: 12/18/19 22:12 Dose: Not Given Documented by: Ketorolac Tromethamine (Toradol) 15 mg IVPUSH Q8H [facility] Stop: 12/20/19 13:01 Last Admin: 12/20/19 13:09 Dose: 15 mg Documented by: Ketorolac Tromethamine (Toradol) 30 mg IVPUSH ONETIME ONE Stop: 12/18/19 20:55 Last Admin: 12/18/19 21:19 Dose: 30 mg Documented by: Midazolam HCl (Versed 1 Mg/Ml) Confirm Administered Dose 2 mg .ROUTE .STK-MED ONE Stop: 12/18/19 09:22 Nitroglycerin (Nitrostat) 0.4 mg SL ONETIME ONE Stop: 12/20/19 05:06 Last Admin: 12/20/19 05:14 Dose: 0.4 mg Documented by: Nitroglycerin (Nitrostat) Confirm Administered Dose 0.4 mg .ROUTE .STK-MED ONE Stop: 12/20/19 05:14 Last Admin: 12/20/19 05:33 Dose: Not Given Documented by: Oxycodone HCl (Oxycodone) 5 mg PO Q4H PRN PRN Reason: Pain (moderate 4-6) Oxycodone HCl (Oxycodone) 5 - 10 mg PO Q4H PRN PRN Reason: Pain (moderate 4-6) Last Admin: 12/19/19 10:32 Dose: 10 mg Documented by: Propofol (Diprivan 20 Ml) Confirm Administered Dose 200 mg .ROUTE .STK-MED ONE Stop: 12/18/19 09:22 - Exam Quality Assessment: Denies: Supplemental Oxygen General: Reports: Alert, Oriented, Cooperative, No Acute Distress Lungs: Reports: Normal Respiratory Effort Cardiovascular: Reports: Regular Rate, Regular Rhythm GI/Abdominal Exam: Soft, No Distention Extremities: No Pedal Edema Skin: Reports: Ecchymosis (Scattered small bruises over the right distal thigh anteriorly and laterally as well as some bruising lateral and posterior to the surgical incision) Psy/Mental Status: Reports: Alert, Normal Affect
[2019-12-21 10:32] VITALS: BP 109/51; PULSE 77
--- NOTE | 2020-01-18 11:39 | OR ---
DATE OF PROCEDURE: 12/18/2019 SURGEON: Luigi Boateng MD PREOPERATIVE DIAGNOSIS: Impacted right femoral neck fracture. POSTOPERATIVE DIAGNOSIS: Impacted right femoral neck fracture. PROCEDURE: Percutaneous screw fixation, right hip, using Synthes 7.3 mm screws x3. ANESTHESIA: Spinal with sedation. INDICATIONS: Dot is an 89-year-old female, who sustained a fall, resulting in right femoral neck fracture. X-rays revealed impacted neck with very slight valgus position. She was taken to the operating room for fixation. Risks, benefits, and potential complications were discussed with the patient. DESCRIPTION OF PROCEDURE: After adequate anesthesia was obtained, patient was placed on the fracture table. Right hip and thigh were prepped and draped in a sterile fashion. A small incision was made just inferior to the greater trochanter and carried down through the subcutaneous tissues. The tensor fascia was divided and a guide pin was then placed under fluoroscopic guidance into the superior central portion of the femoral neck. Position was confirmed with AP and lateral images. Drill guide was then utilized to place 2 additional screws inferior to the initial screw, 1 slightly more anterior and 1 posterior. Position of the additional guide pins was confirmed. These were then measured and the lateral cortex was drilled. Screws were then advanced across the femoral head and neck and the guide pins were removed. Final position was confirmed using AP and lateral images. The wound was irrigated. Tensor fascia was closed with 2-0 Vicryl. Skin was closed with 2-0 Vicryl and 3- 0 Monocryl. Steri-Strips were applied. Sterile dressing was then placed. The patient tolerated the procedure well. There were no complications. Taken from the operating room in stable condition. Luigi Boateng MD /[id number]
== END 2019-12-21 12:30 | DRG 482 ==
LOC: JP.ED 22:32 → JP.MS 12-18 00:09
PROVIDERS: ADMIT Family Medicine; ATTEND Internal Medicine
PROC: 0QS634Z Reposition Right Upper Femur with Internal Fixation Device, Percutaneous Approach (ICD-10-PCS; principal; 2019-12-17)
DX: S72.011A Unspecified intracapsular fracture of right femur, initial encounter for closed fracture (principal); W19.XXXA Unspecified fall, initial encounter; S72.009A Fracture of unspecified part of neck of unspecified femur, initial encounter for closed fracture; I25.10 Atherosclerotic heart disease of native coronary artery without angina pectoris; Z87.440 Personal history of urinary (tract) infections; E78.5 Hyperlipidemia, unspecified; M17.11 Unilateral primary osteoarthritis, right knee; I25.2 Old myocardial infarction; Z11.59 Encounter for screening for other viral diseases; Z95.5 Presence of coronary angioplasty implant and graft; Z90.710 Acquired absence of both cervix and uterus; Z79.899 Other long term (current) drug therapy
CPT/HCPCS: 36415; 51702; 73502-26-RT; 73502-RT; 76000; 80048; 84484; 85025; 85027; 93010; 97110-GP; 97116-GP; 97162-GP; 97530-GP; 99231; 99232; 99239; 99284; 99285-25; A9270-GY; C1713; J0690; J1885; J2250; J2704; J3010; J3490; J7030; U0002